=== PATIENT | female | born 1975 | race Caucasian/White ===

== ENCOUNTER 2016-08-24 20:56 | Emergency (ER) | payer MEDICAID ==
[2016-08-24 21:07] VITALS: TEMP 97.9; BMI 31.4
[2016-08-24] MEDS ORDERED: SODIUM CHLORIDE 0.9% 10 ML FLUSH FLUSH PRN (21:30)
[2016-08-24] MEDS ORDERED: ONDANSETRON HCL 4 MG/2 ML VIAL IV ONE (21:30)
[2016-08-24] MEDS ORDERED: HYDROmorphone 1 MG INJECTION IV ONE (21:30)
--- NOTE | 2016-08-24 21:33 | EDPRACDOC ---
- General Information Chief Complaint: Abdominal Pain Stated Complaint: ABDOMINAL PAIN Time Seen by Provider: 08/24/16 21:22 Information Source: Patient Mode Of Arrival: Car Home Medications: Home Medications Morphine Sulfate [Ms Contin] 15 mg PO TID 03/09/15 Amitriptyline HCl [Elavil] 25 mg PO HS 07/10/15 Diazepam [Valium] 5 mg PO TID #15 tablet 07/10/15 Oxycodone HCl [Oxycodone Immediate Release] 10 mg PO TID PRN 07/10/15 Oxycodone Immediate Release [Oxycodone Immediate Release (OxyIR)] 5 mg PO Q6H PRN #7 tab 07/10/15 Pregabalin [Lyrica] 100 mg PO TID 07/10/15 Ketorolac Tromethamine 10 mg PO Q6H PRN #20 tab 10/03/15 Ondansetron [Zofran Odt] 4 mg PO Q6H PRN #20 tab.rapdis 10/03/15 Dicyclomine HCl [Bentyl] 20 mg PO Q8H PRN #20 tab 08/24/16 Polyethylene Glycol 3350 [Miralax] 17 gm PO DAILY PRN #119 grams 08/24/16 Allergies/Adverse Reactions: Allergies Allergy/AdvReac Type Severity Reaction Status Date / Time codeine [Codeine] Allergy Mild Rash-Genera Verified 08/24/16 21:07 lized naproxen Allergy Mild Nausea only Verified 08/24/16 21:07 - History of Present Illness Onset: week HPI: Pt c/o RLQ pain x 1 week. Denies fever, n/v, changes in bowel or bladder, vaginal bleeding or discharge, rash. Pt staets pain worse with movement. Pain Location: Reports: RLQ Pain Context: Reports: Spontaneous Pain Severity: Moderate Pain Quality: Reports: Aching, Sharp Pain Radiation: Reports: No Radiation Last Menstrual Period: last week : No Adult Abdominal History: Reports: Abdominal Surgery Modifying Factors: improves with: Movement Female Associated Signs & Symptoms: Denies: Nausea, Frequency, Vaginal Bleeding , Vomiting, Hematemesis, Anorexia, Diarrhea, Melena, Dysuria, Fever, Urgency, Hematuria, Chills, Vaginal Discharge, Other Oral Intake: Normal Urinary Output: Normal ED Past Medical History - History Reviewed Yes Nurses notes reviewed and agree except as marked - Patient Medical History Cardiac History: Reports: Hypertension, Hypercholesterolemia Additional Past Medical History: CHRONIC BACK PAIN. Cluster Headaches Surgical History: Reports: Cholecystectomy - Social Medical History Smoking Status: Heavy tobacco smoker (5 or more cigarettes/day or daily pipe/ cigar) ETOH: None Substance Abuse: None EDM Review of Systems - Review of Systems Constitutional: No Symptoms Reported. negative: Fever, Chills, Weakness, Fatigue, Loss of Appetite Ears: No Symptoms Reported. negative: Pain, Hearing Loss, Drainage, Ear Pulling Throat: No Symptoms Reported. negative: Pain, Swelling Nose: No Symptoms Reported. negative: Congestion, Bleeding, Discharge, Injection, Swelling, Deformity, Ecchymosis, Tender, Abrasion, Laceration Mouth: No Symptoms Reported. negative: Pain, Drooling Respiratory: No Symptoms Reported. negative: Cough, Brassy Cough, Barky Cough, Shortness of Breath, Wheezing, Hemoptysis Cardiovascular: No Symptoms Reported. negative: Chest Pain, Palpitations, Syncope, Edema, Orthopnea, PND, Skin Mottling, Cyanosis Gastrointestinal: Pain Genitourinary: No Symptoms Reported. negative: Dysuria, Hematuria, Frequency, Discharge, Bleeding, Testicular Pain, Neurological: No Symptoms Reported. negative: Headache, Dizziness, Seizure, Numbness, Weakness, Speech Difficulty, Gait Difficulty Musculoskeletal: No Symptoms Reported. negative: Neck, Chestwall, Ribs, Back, Shoulder, Arm, Elbow, Forearm, Wrist, Hand, Pelvis, Hip, Femur, Knee, Leg, Ankle , Foot Integumentary: No Symptoms Reported. negative: Itching, Rash, Bruising, Wound Allergic/Immunologic: No Symptoms Reported. negative: Hives, Itching Hematologic: No Symptoms Reported. negative: Lymphadenopathy, Easy Bruising, Easy Bleeding Psychiatric: No Symptoms Reported. negative: Anxiety, Depression, Hallucinations, Insomnia, Suicidal - Physical Exam Constitutional: Alert Oriented to: Time, Person, Place Last recorded Vital Signs: Last Vital Signs Temp 97.9 F 08/24/16 21:06 Pulse 88 08/25/16 00:14 Resp 20 08/25/16 00:14 BP 137/72 08/25/16 00:14 Pulse Ox 98 08/25/16 00:14 Oxygen Pulse Oxygen Saturation 98 O2 Device Oxygen Flow Rate Fraction of Inspired Oxygen ( FIO2) - HEENT Head: Normal ( normocephalic) Eye Exam: Normal (PERRL, EOMI, Sclera white) Neck: Normal (FROM, trachea at midline) - Respiratory/Cardiovascular Respiratory: Normal - CTA (BBS clear to auscultation without adventitious sounds ) Cardiovascular: Tachycardia - GI Auscultation: Normal (NABS) Palpation: Normal (Soft,No rebound or guarding, non distended) Tenderness: Moderate, RLQ - Bladder: Normal External: Normal Vagina: Normal Cervix: Normal - Musculoskeletal Back: Normal (Non-Tender) Extremities: Normal (Normal tone, Pulses 2+ No cyanosis or edema, FROM) - Integumentary Skin: Normal, Warm, Dry Lymphatics: Normal (no adenopathy) - Neurologic Memory Impaired: Normal Motor Function: Normal Mood Description: Normal Perception: Normal - Differential Diagnosis Appendicitis, Bowel Obstruction, Constipation, Hernia, Urolithiasis, UTI - Results 08/24/16 21:53 08/24/16 21:53 WBC 11.4 xk/uL (3.8-10.8) H 08/24/16 21:53 RBC 4.61 xM/uL (4.20-5.40) 08/24/16 21:53 Hgb 14.3 g/dL (12.0-16.0) 08/24/16 21:53 Hct 42.5 % (36-47) 08/24/16 21:53 MCV 92 fL (81-99) 08/24/16 21:53 MCH 31.0 pg (27-32) 08/24/16 21:53 MCHC 33.6 g/dl (33-36) 08/24/16 21:53 RDW 13.4 % (11.5-14.5) 08/24/16 21:53 Plt Count 223 xk/uL (130-400) 08/24/16 21:53 MPV 11.0 fL (7.4-10.4) H 08/24/16 21:53 Neut % (Auto) 78.5 % (45-76) H 08/24/16 21:53 Lymph % (Auto) 12.2 % (17-44) L 08/24/16 21:53 [place] % (Auto) 6.4 % (3-10) 08/24/16 21:53 Eos % (Auto) 1.8 % (0-5) 08/24/16 21:53 Baso % (Auto) 1.1 % (0-2) 08/24/16 21:53 Absolute Neuts (auto) 8.89 xk/uL (1.7-8.2) H 08/24/16 21:53 Absolute Lymphs (auto) 1.37 xk/uL (0.65-4.75) 08/24/16 21:53 Sodium 140 mEq/L (137-146) 08/24/16 21:53 Potassium 3.6 mEq/L (3.5-5.1) 08/24/16 21:53 Chloride 105 mEq/L (98-107) 08/24/16 21:53 Carbon Dioxide 24 mMOL/L (22-33) 08/24/16 21:53 Anion Gap 15 mEq/L (8-16) 08/24/16 21:53 BUN 12 MG/DL (7-17) 08/24/16 21:53 Creatinine 0.60 MG/DL (0.52-1.04) 08/24/16 21:53 Estimated GFR (MDRD) > 60 mL/min (>=60) 08/24/16 21:53 Glucose 106 MG/DL (70-99) H 08/24/16 21:53 Calculated Osmolality 269 MOs/Kg (270-290) L 08/24/16 21:53 Calcium 9.1 MG/DL (8.4-10.2) 08/24/16 21:53 Corrected Calcium 9.2 MG/DL (8.4-10.2) 08/24/16 21:53 Total Bilirubin 0.5 MG/DL (0.2-1.3) 08/24/16 21:53 AST 21 IU/L (14-36) 08/24/16 21:53 ALT 30 IU/L (9-52) 08/24/16 21:53 Alkaline Phosphatase 89 IU/L (38-126) 08/24/16 21:53 Total Protein 7.0 G/DL (6.3-8.2) 08/24/16 21:53 Albumin 3.9 G/DL (3.5-5.0) 08/24/16 21:53 Urine Color Yellow 08/24/16 21:00 Urine Clarity Clear 08/24/16 21:00 Urine pH 5.0 (5.0-8.0) 08/24/16 21:00 Ur Specific [place] 1.020 (1.003-1.035) 08/24/16 21:00 Urine Protein Neg (NEG/TRACE) 08/24/16 21:00 Urine Glucose (UA) Neg (NEGATIVE) 08/24/16 21:00 Urine Ketones Neg (NEGATIVE) 08/24/16 21:00 Urine Occult Blood Neg (NEG/TRACE) 08/24/16 21:00 Urine Nitrite Neg (NEGATIVE) 08/24/16 21:00 Urine Bilirubin Neg (NEGATIVE) 08/24/16 21:00 Urine Urobilinogen <2.0 MG/DL (0-1) 08/24/16 21:00 Ur Leukocyte Esterase Neg (NEGATIVE) 08/24/16 21:00 Urine RBC 2-5 (0-5) 08/24/16 21:00 Urine WBC 0-2 (0-5) 08/24/16 21:00 Ur Epithelial Cells 2+ 08/24/16 21:00 Urine Bacteria Few (NEG/FEW) 08/24/16 21:00 Urine Mucus Sm amt (NEG/OCC) 08/24/16 21:00 Urine Test Neg (NEGATIVE) 08/24/16 21:00 Microbiology 08/25/16 00:35 STEPHANIE Preparation - Final Vaginal 08/25/16 00:35 Trichomonas Wet Mount - Final Vaginal Lab Results 08/24/16 08/24/16 08/24/16 21:53 21:53 21:00 WBC 11.4 H RBC 4.61 Hgb 14.3 Hct 42.5 MCV 92 MCH 31.0 MCHC 33.6 RDW 13.4 Plt Count 223 MPV 11.0 H Neut % (Auto) 78.5 H Lymph % (Auto) 12.2 L [place] % (Auto) 6.4 Eos % (Auto) 1.8 Baso % (Auto) 1.1 Absolute Neuts (auto) 8.89 H Absolute Lymphs (auto) 1.37 Sodium 140 Potassium 3.6 Chloride 105 Carbon Dioxide 24 Anion Gap 15 BUN 12 Creatinine 0.60 Estimated GFR (MDRD) > 60 Glucose 106 H Calculated Osmolality 269 L Calcium 9.1 Corrected Calcium 9.2 Total Bilirubin 0.5 AST 21 ALT 30 Alkaline Phosphatase 89 Total Protein 7.0 Albumin 3.9 Urine Color Urine Clarity Urine pH Ur Specific [place] Urine Protein Urine Glucose (UA) Urine Ketones Urine Occult Blood Urine Nitrite Urine Bilirubin Urine Urobilinogen Ur Leukocyte Esterase Urine RBC Urine WBC Ur Epithelial Cells Urine Bacteria Urine Mucus Urine Test Neg 08/24/16 21:00 WBC RBC Hgb Hct MCV MCH MCHC RDW Plt Count MPV Neut % (Auto) Lymph % (Auto) [place] % (Auto) Eos % (Auto) Baso % (Auto) Absolute Neuts (auto) Absolute Lymphs (auto) Sodium Potassium Chloride Carbon Dioxide Anion Gap BUN Creatinine Estimated GFR (MDRD) Glucose Calculated Osmolality Calcium Corrected Calcium Total Bilirubin AST ALT Alkaline Phosphatase Total Protein Albumin Urine Color Yellow Urine Clarity Clear Urine pH 5.0 Ur Specific [place] 1.020 Urine Protein Neg Urine Glucose (UA) Neg Urine Ketones Neg Urine Occult Blood Neg Urine Nitrite Neg Urine Bilirubin Neg Urine Urobilinogen <2.0 Ur Leukocyte Esterase Neg Urine RBC 2-5 Urine WBC 0-2 Ur Epithelial Cells 2+ Urine Bacteria Few Urine Mucus Sm amt Urine Test - Diagnostic Imaging Abdomen Image interpreted by: Radiologist 08/24/16 23:54 IMPRESSION: 1. No acute abnormality in the abdomen/pelvis. Particularly, normal appendix. 2. Moderate stool burden with tortuous sigmoid colon, can be seen with constipation. 3. Scattered hepatic hypodensities, largest measuring 1.8 cm, incompletely characterized but unchanged compared to prior exam of 2013. Size stability consistent with benign process such as hemangioma. - Additional Information Pt discussed with elif Ng to d/c home. Decision Time to Discharge: 01:14 - Departure Disposition: Home Condition: Good Final Diagnosis: Abdominal pain Constipation Qualifiers: Constipation type: unspecified constipation type Qualified Code(s): K59.00 - Constipation, unspecified Instructions: Acute Abdominal Pain (ED), Constipation (ED), High Fiber Diet (ED ) Education/Counseling Given To: Patient Education/Counseling Given Regarding: Diagnosis, Treatment, Follow Up Referrals: Antoinette Giles PA [Primary Care Provider] - One Week Prescriptions: Dicyclomine HCl [Bentyl] 20 mg PO Q8H PRN #20 tab PRN Reason: Pain Polyethylene Glycol 3350 [Miralax] 17 gm PO DAILY PRN #119 grams PRN Reason: Constipation Additional Instructions: Increase fluids and fiber. Return for worse or different symptoms.
[2016-08-24 21:35] LABS: LEUKOCYTES/URINE NEG (NEGATIVE); NITRITE/URINE NEG (NEGATIVE); URINE OCCULT BLOOD NEG (NEG/TRACE); WBC/URINE 0-2 (0-5)
[2016-08-24] MEDS ORDERED: Pharmacy Review for Metformin - IV Contrast Given SCH (22:00)
[2016-08-24 22:04] LABS: AUTOMATED BASOPHIL 1.1 % (0-2); AUTOMATED EOSINOPHIL 1.8 % (0-5); AUTOMATED LYMPH 12.2 % (17-44); AUTOMATED MONOCYTE 6.4 % (3-10); AUTOMATED NEUTROPHIL 78.5 % (45-76)
[2016-08-24 22:16] LABS: BLOOD UREA NITROGEN 12 MG/DL (7-17); CALC CORRECTED 9.2 MG/DL (8.4-10.2); CALCIUM 9.1 MG/DL (8.4-10.2); CALCULATED OSMOLALITY 269 MOs/Kg (270-290); CHLORIDE 105 mEq/L (98-107); GLUCOSE 106 MG/DL (70-99); SODIUM LEVEL 140 mEq/L (137-146)
--- NOTE | 2016-08-24 23:30 | DIRPT ---
CLINICAL DATA: Right lower quadrant pain for 1 week. Nausea. EXAM: CT ABDOMEN AND PELVIS WITH CONTRAST TECHNIQUE: Multidetector CT imaging of the abdomen and pelvis was performed using the standard protocol following bolus administration of intravenous contrast. CONTRAST: 100 mL Isovue 370 IV COMPARISON: CT 10/04/2013 FINDINGS: Lower chest: The included lung bases are clear. Thoracic scoliosis with posterior fusion hardware with associated streak artifact Liver: Scattered hypodense hepatic lesions on the right and left lobe, largest measuring 1.8 cm, unchanged in size from prior exam. Hepatobiliary: Postcholecystectomy with clips in the gallbladder fossa. Mild central intrahepatic biliary ductal prominence, no extrahepatic biliary dilatation. Pancreas: No ductal dilatation or inflammation. Spleen: Normal. Adrenal glands: No nodule. Kidneys: Symmetric renal enhancement. No hydronephrosis. No perinephric stranding. Stomach/Bowel: Stomach physiologically distended. There are no dilated or thickened small bowel loops. Moderate volume of stool throughout the colon without colonic wall thickening. Sigmoid colon is tortuous. The appendix is normal. Vascular/Lymphatic: No retroperitoneal adenopathy. Abdominal aorta is normal in caliber. Reproductive: Uterus is unremarkable for CT appearance. Left ovary is normal in size. Right ovary not definitively define due to adjacent bowel loops. No adnexal mass or pelvic free fluid. Bladder: Decompressed, not well evaluated. Other: Rounded density of the right lower anterior abdominal wall matching the abdominal wall musculature is likely sequela of prior surgery. No surrounding inflammation. This appears similar to prior exam. No free air, free fluid, or intra-abdominal fluid collection. Musculoskeletal: Scoliotic curvature of the spine with lumbar and thoracic spinal fixation. There are no acute or suspicious osseous abnormalities. IMPRESSION: 1. No acute abnormality in the abdomen/pelvis. Particularly, normal appendix. 2. Moderate stool burden with tortuous sigmoid colon, can be seen with constipation. 3. Scattered hepatic hypodensities, largest measuring 1.8 cm, incompletely characterized but unchanged compared to prior exam of 2013. Size stability consistent with benign process such as hemangioma. Electronically Signed By: Elle Lobato M.D. On: 08/24/2016 23:27
[2016-08-24] MEDS ORDERED: DIPHENHYDRAMINE 50 MG/ML VIAL IV ONE (23:53)
[2016-08-24] MEDS: NS 1,000 ML IV ONE (23:58)
[2016-08-25 01:40] VITALS: BP 132/82; PULSE 83
[2016-08-27 05:38] LABS: CHLAMY BY NUCLEIC ACID AMP Negative (Negative)
[2016-08-27 08:48] LABS: GC BY NUCLEIC ACID AMP Negative (Negative)
== END 2016-08-25 01:30 | disposition home or self-care (01) ==
LOC: ED 20:56
DX: K59.00 Constipation, unspecified (principal)
CPT/HCPCS: 36415; 74177; 80053; 81001; 81025; 85025; 87210; 87220; 87491; 87591; 96361; 96374; 96375; 99284; A9698; J1170; J1200; J2405